=== PATIENT | female | born 1935 | race Two or more races ===

== ENCOUNTER 2022-07-14 21:28 | Inpatient (IN) | payer MEDICARE, OTHER ==
[~2022-07-14] VITALS: Ht 162.6 cm; Wt 45.4 kg
[2022-07-14 21:30] VITALS: BP 130/59
[2022-07-14 22:30] VITALS: BP 130/59
[2022-07-14] MEDS ORDERED: MAG HYDROX/AL HYDROX/SIMETH 30 ML UDC PO PRN (22:30)
[2022-07-14] MEDS ORDERED: MAGNESIUM HYDROXIDE 30 ML UDC PO PRN (22:30)
[2022-07-14] MEDS ORDERED: ONDANSETRON HCL/PF 4 MG/2 ML VIAL IVP PRN (22:30)
[2022-07-14] MEDS ORDERED: CEFTRIAXONE 1 G in IV D5W 50 ML IV SCH (22:30)
[2022-07-14] MEDS ORDERED: Z GUARD REMEDY 4 OZ OINT TP PRN (22:30)
[2022-07-14] MEDS ORDERED: ACETAMINOPHEN 325 MG TABLET PO PRN (22:30)
[2022-07-14] MEDS ORDERED: IV D5/0.45 NACL 1,000 ML IV ONE (22:30)
[2022-07-14] MEDS ORDERED: MORPHINE SULFATE INJ 2 MG/ML DISP.SYRIN IV PRN (22:30)
--- NOTE | 2022-07-14 22:40 | NUR ---
RAIL LOADER OPENING NOTES PATIENT CAME AT 2230 FROM [facility]. PATIENT IS A/O X1. ON ROOM AIR, NO S/S OF RESPIRATORY DISTRESS NOTED. IV ACCESS AT LAC #22 and RFA #24, SALINE LOCK. TELE MONITOR SHOWS A-FIB. SKIN ASSESSMENT DONE AND PERFORMED. PICTURES TAKEN AND PLACED AT PATIENT'S CHART.PATIENT DOESN'T HAVE ANY BELONGING.ADMISSION ORDER RECEIVED. REORIENTATION PATIENT TO THE ROOM AND USE OF CALL LIGHT BUTTON. SAFETY PRECAUTION MAINTAINED WITH BED ON LOWEST AND LOCK POSITION. SIDE RAILS X 2. BED ALARM ON. HOB ELEVATED. WILL CONTINUE TO MONITOR.
--- NOTE | 2022-07-14 22:44 | NUR ---
RN NOTES MD NEEDS TO ORDER UA STAT. PATIENT IS INCONTINENT. MD ORDERED FERGUSON CATHETER. ORDER CARRY ON.
--- NOTE | 2022-07-14 22:47 | NUR ---
RN NOTES TRIED TO CALL THE FAMILY BUT IT WENT THROUGH THE VOICEMAIL BOX. THE NUMBER IS [phone].
--- NOTE | 2022-07-14 23:05 | NUR ---
RN notes Held Manuel munson per Dr. Santos ordered. ordered to give at 0900 am.
--- NOTE | 2022-07-14 23:09 | NUR ---
RN notes Dr. Marquez at the bedside. MD ordered to give Rocephin at 0900 am. Order carried out.
[2022-07-14 23:54] LABS: BASOPHILS % (AUTO) 0.2 % (0.0-2.0); EOSINOPHILS % (AUTO) 0.7 % (0.0-6.0); HEMATOCRIT 37 % (33-45); HEMOGLOBIN 11.2 g/dL (11.5-14.8); LYMPHOCYTES # (AUTO) 1.4 K/uL (0.8-4.8); LYMPHOCYTES % (AUTO) 17.4 % (20.0-44.0); MEAN CORPUSCULAR HGB CONC 31 g/dl (31.0-36.0); MEAN CORPUSCULAR VOLUME 103 fL (82-100); MONOCYTES # (AUTO) 0.4 K/uL (0.1-1.30); MONOCYTES % (AUTO) 5.4 % (2.0-12.0); NEUTROPHILS # (AUTO) 6.3 K/uL (1.8-8.9); NEUTROPHILS % (AUTO) 76.3 % (43.0-81.0); PLATELET COUNT (AUTO) 100 K/uL (150-450); RED BLOOD CELL COUNT(AUTO) 3.57 MIL/uL (4.0-5.2); WHITE BLOOD COUNT (AUTO) 8.2 K/uL (4.3-11.0)
[2022-07-15] VITALS: BP 115/63
[2022-07-15 00:10] LABS: ALANINE AMINOTRANSFERASE 34 U/L (12-78); ALBUMIN 2.4 g/dL (3.4-5.0); ALKALINE PHOSPHATASE 76 U/L (46-116); ASPARTATE AMINOTRANSFERASE 28 U/L (15-37); BILIRUBIN,TOTAL 0.4 mg/dL (0.2-1.0); CALCIUM, SERUM 9.2 mg/dL (8.5-10.1); CARBON DIOXIDE 25 mmol/L (21-32); GLUCOSE 122 mg/dL (74-106); POTASSIUM 3.2 mmol/L (3.5-5.1); TOTAL PROTEIN, SERUM 6.2 g/dL (6.4-8.2); UREA NITROGEN, BLOOD 47 mg/dL (7-18)
[2022-07-15 00:12] LABS: BILIRUBIN,URINE 1+ (NEGATIVE); COLOR,URINE AMBER (YELLOW); LEUKOCYTE ESTERASE ,URINE 3+ (NEGATIVE); NITRITE, URINE NEGATIVE (NEGATIVE); PROTEIN,URINE 2+ mg/dl (NEGATIVE); UGLUCOSE NEGATIVE (NEGATIVE); UROBILINOGEN,URINE 0.2 EU/dL (0.2)
--- NOTE | 2022-07-15 00:15 | NUR ---
RN NOTES OBTAINED THE PATIENT'S INFO FROM INDERJIT DicksonROBERTO) [phone].
[2022-07-15 00:24] LABS: BACTERIA,URINE Few /HPF (None Seen); RBC,URINE TOO NUMEROUS TO COUN /HPF (0-2); SQUAMOUS EPITHELIAL CELL,UR Few /HPF (None Seen)
[2022-07-15 00:27] LABS: SODIUM SERUM 172 mmol/L (136-145)
[2022-07-15 00:28] LABS: CHLORIDE 140 mmol/L (98-107)
--- NOTE | 2022-07-15 00:31 | NUR ---
RN notes Received a critical lab from [facility] for sodium 172. Dr. Verdugo is aware and informed. No new order received. Will continue to monitor.
--- NOTE | 2022-07-15 00:36 | NUR ---
RN notes Called [place] [facility] regarding lovenox.
--- NOTE | 2022-07-15 00:58 | NUR ---
RN notes Informed and notified Dr. Mishra regarding Pt's lactic acid is 2.3. No new orders received per MD. Charge nurse is aware and informed. Will continue to monitor.
[2022-07-15] MEDS: ENOXAPARIN SODIUM 40 MG/0.4 ML DISP.SYRIN SQ SCH ×3 (01:04→20:41)
[2022-07-15] MEDS ORDERED: POTASSIUM CHLORIDE 10 MEQ/50 ML PREMIXED IVPB FOR PERIPHERAL LINE IV ONE (02:30)
--- NOTE | 2022-07-15 02:30 | NUR ---
RN notes Informed and notified Dr. Wharton regarding Pt's potassium was 3.2. MD ordered KCL 40mEq/IV/once. Order carried out.
[2022-07-15] MEDS: POTASSIUM CL. PREMIX PERIPHER. 50 ML IV SCH ×4 (02:43→05:44)
[2022-07-15 02:57] LABS: CARBON DIOXIDE 24 mmol/L (21-32); CREATININE 0.9 mg/dL (0.6-1.3); GLUCOSE 148 mg/dL (74-106); POTASSIUM 3.2 mmol/L (3.5-5.1); UREA NITROGEN, BLOOD 47 mg/dL (7-18)
[2022-07-15 03:00] LABS: SODIUM SERUM 171 mmol/L (136-145)
[2022-07-15 03:01] LABS: ALANINE AMINOTRANSFERASE 30 U/L (12-78); ALBUMIN 2.3 g/dL (3.4-5.0); ALKALINE PHOSPHATASE 72 U/L (46-116); ASPARTATE AMINOTRANSFERASE 26 U/L (15-37); BILIRUBIN,DIRECT 0.2 mg/dL (0.0-0.2); BILIRUBIN,TOTAL 0.4 mg/dL (0.2-1.0); CHLORIDE 140 mmol/L (98-107); TOTAL PROTEIN, SERUM 5.9 g/dL (6.4-8.2)
--- NOTE | 2022-07-15 03:01 | NUR ---
RN notes Receive a phone call from [facility]. Pt's sodium is 171. Pt's sodium was 172. MD is aware and informed.
[2022-07-15 04:00] VITALS: BP 117/73
[2022-07-15 06:37] LABS: BASOPHILS % (AUTO) 0.3 % (0.0-2.0); EOSINOPHILS % (AUTO) 1.3 % (0.0-6.0); HEMATOCRIT 35 % (33-45); HEMOGLOBIN 10.7 g/dL (11.5-14.8); LYMPHOCYTES # (AUTO) 1.8 K/uL (0.8-4.8); MEAN CORPUSCULAR HGB CONC 30 g/dl (31.0-36.0); MEAN CORPUSCULAR VOLUME 106 fL (82-100); MONOCYTES # (AUTO) 0.5 K/uL (0.1-1.30); MONOCYTES % (AUTO) 5.8 % (2.0-12.0); NEUTROPHILS # (AUTO) 6.3 K/uL (1.8-8.9); NEUTROPHILS % (AUTO) 71.6 % (43.0-81.0); PLATELET COUNT (AUTO) 99 K/uL (150-450); RED BLOOD CELL COUNT(AUTO) 3.32 MIL/uL (4.0-5.2); WHITE BLOOD COUNT (AUTO) 8.7 K/uL (4.3-11.0)
--- NOTE | 2022-07-15 06:40 | NUR ---
BROILER CHEF OR COOK CLOSING NOTES PATIENT IS ASLEEP AND RESTING COMFORTABLY IN BED. CAN BE EASITY BE AWAKEN BY CALLING NAME. A/O X 1-2. PATIENT IS ABLE TO FOLLOW DIRECTIONS. NO S/S OF RESPIRATORY DESTRESS NOTED. ON TELE MONITOR, A-FIB AT 72. IV SITE ON RFA #24G RUNNING at D5W 1/2 NS RUNNING AT 70ML/HR AND LAC #22G ON SALINE LOCK.KEPT CLEAN, DRY AND COMFORTABLE. CHANGED DIAPER AND WOUND CARE DONE. SAFETY MEASURES MAINTAINED WITH BED IN LOWEST AND LOCK POSITION. BED ALARM ON. CALL LIGHT AND TABLE WITHIN REACH. SIDE RAILS UP X2. WILL ENDORSE TO THE NEXT SHIFT FOR THE CONTINUITY OF CARE.
--- NOTE | 2022-07-15 07:00 | NUR ---
WELDER TECH OPENING NOTES: RECEIVED PT IN BED ASLEEP, EASILY AWAKE BY STIMULI. ALERT AND ORIENTED X 1. NO SOB OR CARDIAC DISTRESS WITH SENIOR IT ARCHITECT WITH CURRENT READING:A.FIB @74BPM. IV ACCESS ON LFA GAUGE 22, RFA GAUGE 24 PATENT, INTACT AND INFUSING D5 1/2 NS @70ML/HR . SAFETY MEASURES MAINTAINED: BED LOCKED AND IN LOWEST POSITION. SIDE RAILS UP X 2, CALL LIGHT IN EASY REACH AND WILL MONITOR ACCORDINGLY.
[2022-07-15 07:37] LABS: ALANINE AMINOTRANSFERASE 26 U/L (12-78); ALBUMIN 2.3 g/dL (3.4-5.0); ALKALINE PHOSPHATASE 74 U/L (46-116); ASPARTATE AMINOTRANSFERASE 24 U/L (15-37); BILIRUBIN,TOTAL 0.4 mg/dL (0.2-1.0); CALCIUM, SERUM 9.2 mg/dL (8.5-10.1); CARBON DIOXIDE 22 mmol/L (21-32); CREATININE 0.8 mg/dL (0.6-1.3); GLUCOSE 127 mg/dL (74-106); MAGNESIUM 2.9 mg/dL (1.8-2.4); POTASSIUM 4.1 mmol/L (3.5-5.1); UREA NITROGEN, BLOOD 44 mg/dL (7-18)
[2022-07-15 07:57] LABS: CHLORIDE 142 mmol/L (98-107); SODIUM SERUM 170 mmol/L (136-145)
[2022-07-15 08:00] VITALS: BP 124/53
--- NOTE | 2022-07-15 08:00 | NUR ---
RN NOTES: RECEIVED LAB RESULTS: NA 170,CL 142. LAB ([facility])
[2022-07-15] MEDS ORDERED: TRAZ-257 PO (09:46)
[2022-07-15] MEDS ORDERED: ASCO-352 PO (09:46)
[2022-07-15] MEDS ORDERED: CHOL100043 PO (09:46)
[2022-07-15] MEDS ORDERED: ZINC50TA65 PO (09:46)
[2022-07-15] MEDS ORDERED: QUET25TA PO (09:46)
[2022-07-15] MEDS ORDERED: ATOR10TA PO (09:46)
[2022-07-15] MEDS ORDERED: DONE10TA44 PO (09:46)
[2022-07-15] MEDS ORDERED: MEMA10TA56 PO (09:46)
[2022-07-15] MEDS ORDERED: AMLO-212 PO (09:46)
[2022-07-15] MEDS ORDERED: ENAL-78 PO (09:46)
[2022-07-15 11:04] LABS: ALBUMIN 2.4 g/dL (3.4-5.0); BILIRUBIN,TOTAL 0.4 mg/dL (0.2-1.0); CALCIUM, SERUM 9.2 mg/dL (8.5-10.1); CREATININE 0.8 mg/dL (0.6-1.3); TOTAL PROTEIN, SERUM 6.1 g/dL (6.4-8.2)
[2022-07-15 11:10] LABS: POTASSIUM 3.9 mmol/L (3.5-5.1)
--- NOTE | 2022-07-15 11:10 | NUR ---
RN NOTES: [facility] RESULTS: NA 169, CL 139. REPORTED BY JORDAN
[2022-07-15 11:16] LABS: EOSINOPHILS % (MANUAL) 2 % (0-4); LYMPHOCYTES % (MANUAL) 23 % (16-48); MONOCYTES % (MANUAL) 7 % (0-11.0); NEUTROPHILS % (MANUAL) 68 (42-76)
[2022-07-15] MEDS: IV D5W 1,000 ML IV PRN (11:34)
[2022-07-15 12:00] VITALS: BP 115/82
[2022-07-15] MEDS ORDERED: NEUTRA PHOS 1 POWD.PACKET NG ONE (12:30)
--- NOTE | 2022-07-15 12:56 | NUR ---
RN NOTES: DAUGHTER INSISTED TO FEED HER MOTHER (PT).PT HAD EPISODES OF COUGHING BECAUSE DAUGHTER STATED PT IS HUNGRY SO SHE FEED HER FAST. ASSESSED PT AND ELEVATED THE BED,
--- NOTE | 2022-07-15 13:18 | NUR ---
RN NOTES: PT HAS + CRACKLES UPON AUSCULTATION, INFORMED DR MARQUEZ IF WE CAN GET STAT CHEST XRAY. OKAYED. ORDERS NOTED AND CARRIED OUT.
[2022-07-15] MEDS: CEFTRIAXONE 1 G in IV D5W 50 ML IV SCH (14:58)
[2022-07-15 15:32] LABS: ALBUMIN 2.4 g/dL (3.4-5.0); BILIRUBIN,TOTAL 0.3 mg/dL (0.2-1.0); CALCIUM, SERUM 9.1 mg/dL (8.5-10.1); CREATININE 0.9 mg/dL (0.6-1.3); POTASSIUM 3.8 mmol/L (3.5-5.1)
[2022-07-15 16:00] VITALS: BP 129/73
--- NOTE | 2022-07-15 16:11 | NUR ---
RN NOTES: RECEIVED REPORT FROM [facility]: NA 166, CL 136.
--- NOTE | 2022-07-15 18:46 | NUR ---
FIBER GLASS WORKER CLOSING NOTES PATIENT IS ASLEEP AND RESTING COMFORTABLY IN BED, IN ROOM AIR. CYMRAES SPEAKING, RESPONSIVE AND FOLLOWS VERBAL COMMAND.. A/O X 1-2. NO S/S OF RESPIRATORY DESTRESS NOTED. ON TELE MONITOR, A-FIB CONTROLLED AV 6. IV SITE ON RFA #24G, LFA #22g RUNNING at D5W AT 100ML/HR. KEPT CLEAN, DRY AND COMFORTABLE. 1X BM CHANGED DIAPER AND WOUND CARE DONE. SAFETY MEASURES MAINTAINED WITH BED IN LOWEST AND LOCK POSITION. BED ALARM ON. CALL LIGHT AND TABLE WITHIN REACH. SIDE RAILS UP X2. WILL ENDORSE TO THE NEXT SHIFT FOR THE CONTINUITY OF CARE.
[2022-07-15 19:18] LABS: ALBUMIN 2.3 g/dL (3.4-5.0); BILIRUBIN,TOTAL 0.3 mg/dL (0.2-1.0); CALCIUM, SERUM 9.1 mg/dL (8.5-10.1); CREATININE 0.9 mg/dL (0.6-1.3); POTASSIUM 3.7 mmol/L (3.5-5.1); TOTAL PROTEIN, SERUM 6.1 g/dL (6.4-8.2)
--- NOTE | 2022-07-15 19:30 | NUR ---
CUSTOMER CARE VOICE CONSULTANT OPENING NOTES RECEIVED PT SLEEPING IN BED, EASILY AROUSED. IN ROOM AIR WITH NO S/S OF RESPIRATORY DISTRESS. ARABIC SPEAKING, RESPONSIVE AND FOLLOWS VERBAL COMMAND. A/O X 1-2. ON TELE MONITOR, A-FIB CONTROLLED AV 76. IV SITE ON LFA #22G SL, RFA #24 RUNNING D5W AT 100ML/HR, BOTH PATENT AND INTACT. WOUND DRESSING INTACT. FERGUSON CATHETER DRAINING BLOODY URINE NOTED. SAFETY MEASURES IN PLACE: BED LOCKED AND IN LOWEST POSITION, BED ALARM ON, SIDE RAILS UP X3, CALL LIGHT AND TABLE WITHIN REACH. WILL CONTINUE TO MONITOR AND ASSIST.
[2022-07-15 20:00] VITALS: BP 142/58
--- NOTE | 2022-07-15 20:41 | NUR ---
RN NOTES FERGUSON CATHETER NOTED WITH RED/PINK URINE IN BAG. CLEAR URINE NOTED AT START OF TUBING. LOVENOX GIVEN DUE TO ABSENCE OF PRESENT BLEEDING. WILL CONTINUE TO MONITOR.
[2022-07-15] MEDS: THERAHONEY GEL 1.5 OZ TUBE TP SCH (21:00)
[2022-07-15 22:45] LABS: ALANINE AMINOTRANSFERASE 33 U/L (12-78); ALKALINE PHOSPHATASE 68 U/L (46-116); ASPARTATE AMINOTRANSFERASE 41 U/L (15-37); BILIRUBIN,TOTAL 0.2 mg/dL (0.2-1.0); CALCIUM, SERUM 8.6 mg/dL (8.5-10.1); CARBON DIOXIDE 23 mmol/L (21-32); CREATININE 0.9 mg/dL (0.6-1.3); GLUCOSE 123 mg/dL (74-106); POTASSIUM 3.5 mmol/L (3.5-5.1); TOTAL PROTEIN, SERUM 5.2 g/dL (6.4-8.2); UREA NITROGEN, BLOOD 37 mg/dL (7-18)
[2022-07-15 22:48] LABS: CHLORIDE 132 mmol/L (98-107); SODIUM SERUM 162 mmol/L (136-145)
--- NOTE | 2022-07-15 22:51 | NUR ---
RN NOTES CRITICAL LAB REPORT FROM LAB ([facility]): SODIUM 162, CHLORIDE 132.
[2022-07-16] VITALS: BP 134/59
[2022-07-16] MEDS: IV D5W 1,000 ML IV PRN ×2 (00:22→11:28)
[2022-07-16 02:58] LABS: ALANINE AMINOTRANSFERASE 44 U/L (12-78); ALBUMIN 2.1 g/dL (3.4-5.0); ALKALINE PHOSPHATASE 74 U/L (46-116); ASPARTATE AMINOTRANSFERASE 52 U/L (15-37); BILIRUBIN,TOTAL 0.3 mg/dL (0.2-1.0); CALCIUM, SERUM 8.6 mg/dL (8.5-10.1); CARBON DIOXIDE 25 mmol/L (21-32); CREATININE 0.8 mg/dL (0.6-1.3); GLUCOSE 112 mg/dL (74-106); POTASSIUM 3.4 mmol/L (3.5-5.1); TOTAL PROTEIN, SERUM 5.6 g/dL (6.4-8.2); UREA NITROGEN, BLOOD 33 mg/dL (7-18)
--- NOTE | 2022-07-16 03:34 | NUR ---
RN NOTES CRITICAL LAB REPORT FROM LAB ([facility]): SODIUM 159, CHLORIDE 129.
[2022-07-16 03:35] LABS: CHLORIDE 129 mmol/L (98-107); SODIUM SERUM 159 mmol/L (136-145)
[2022-07-16 07:29] LABS: ALBUMIN 2.2 g/dL (3.4-5.0); BILIRUBIN,TOTAL 0.3 mg/dL (0.2-1.0); CALCIUM, SERUM 8.8 mg/dL (8.5-10.1); CREATININE 0.7 mg/dL (0.6-1.3); TOTAL PROTEIN, SERUM 5.8 g/dL (6.4-8.2)
--- NOTE | 2022-07-16 07:30 | NUR ---
BODY SANDER CLOSING NOTES PT RESTING IN BED AT THIS TIME, EASILY AROUSED. STABLE IN RA WITH NO S/S OF RESPIRATORY DISTRESS. ITALIAN SPEAKING, RESPONSIVE AND FOLLOWS VERBAL COMMAND. A/O X 1-2. ON TELE MONITOR, A-FIB CONTROLLED 82. IV SITE ON LFA #22G NOT PATENT AFTER FLUSHING AND RFA #24 RUNNING D5W AT 100ML/HR LEAKING TOWARDS END OF SHIFT. ENDORSED TO DAY SHIFT NURSE. WOUND DRESSING INTACT AND NEW WOUND CARE ORDERED ENDORSED. FERGUSON CATHETER DRAINING PINK URINE NOTED WITH 450 ML OUTPUT THROUGHOUT SHIFT. SAFETY MEASURES MAINTAINED: BED LOCKED AND IN LOWEST POSITION, BED ALARM ON, SIDE RAILS UP X3, CALL LIGHT AND TABLE WITHIN REACH. WILL ENDORSE FELICITAS TO DAY SHIFT NURSE.
--- NOTE | 2022-07-16 07:50 | NUR ---
JOINT SUPERVISOR OPENING NOTES PT RESTING IN BED AT THIS TIME, EASILY AROUSED. STABLE IN RA WITH NO S/S OF RESPIRATORY DISTRESS. OCCITAN SPEAKING, RESPONSIVE AND FOLLOWS VERBAL COMMAND. A/O X 1-2. ON TELE MONITOR, A-FIB CONTROLLED HR ON 80'S. INSERTED A NEW IV LINE AT RIGHT HAND G. 24. FERGUSON CATHETER DRAINING PINK URINE NOTED. ABNORMAL VALUES RELAYED TO HOSPITALIST. AWAITS FURTHER ORDER. SAFETY MEASURES MAINTAINED: BED LOCKED AND IN LOWEST POSITION, BED ALARM ON, SIDE RAILS UP X3, CALL LIGHT AND TABLE WITHIN REACH. WILL CONTINUE TO MONITOR.
[2022-07-16 08:00] VITALS: BP 141/66
--- NOTE | 2022-07-16 08:27 | NUR ---
WOUND CARE CONSULT: PT PRESENTS WITH SACRAL UNSTAGEABLE PRESSURE ULCER WITH PROXIMAL DEEP TISSUE INJURY WELL DEEP TISSUE INJURIES/DISCOLORATIONS TO FEET/HEELS, PRESENT ON ADMISSION. DR ARTHUR ON CASE FOR SURGICAL CONSULT. DR GRACIA CALLED FOR DPM CONSULT. DISCUSSED SKIN PROTECTION WITH NURSING STAFF. PT IS INCONTINENT OF STOOL. MARTY DALY NOTED. IN AGREEMENT WITH PLAN OF CARE. PT IS ON ENGLEWOOD ISOFLEX LOW AIRLOSS BED. Addendum: 07/16/22 at 0831 by CHON CASTRO WNDNU Amended: Links added.
[2022-07-16] MEDS: ENOXAPARIN SODIUM 40 MG/0.4 ML DISP.SYRIN SQ SCH ×2 (09:00→20:07)
[2022-07-16] MEDS: THERAHONEY GEL 1.5 OZ TUBE TP SCH (09:18)
--- NOTE | 2022-07-16 10:00 | NUR ---
PATIENT O2 SAT AT 88% PLACED ON OXYGEN AT 2LPM. O2SAT INCREASE IN 5 MINS. HOB ELEVATED. WILL CONTINUE TO MONITOR.
[2022-07-16 11:30] LABS: BASOPHILS % (AUTO) 0.2 % (0.0-2.0); EOSINOPHILS % (AUTO) 2.6 % (0.0-6.0); HEMATOCRIT 37 % (33-45); HEMOGLOBIN 10.8 g/dL (11.5-14.8); LYMPHOCYTES # (AUTO) 1.7 K/uL (0.8-4.8); LYMPHOCYTES % (AUTO) 18.1 % (20.0-44.0); MEAN CORPUSCULAR HGB CONC 29 g/dl (31.0-36.0); MEAN CORPUSCULAR VOLUME 111 fL (82-100); MONOCYTES # (AUTO) 0.4 K/uL (0.1-1.30); MONOCYTES % (AUTO) 4.7 % (2.0-12.0); NEUTROPHILS # (AUTO) 6.8 K/uL (1.8-8.9); NEUTROPHILS % (AUTO) 74.4 % (43.0-81.0); PLATELET COUNT (AUTO) 85 K/uL (150-450); RED BLOOD CELL COUNT(AUTO) 3.38 MIL/uL (4.0-5.2); WHITE BLOOD COUNT (AUTO) 9.2 K/uL (4.3-11.0)
[2022-07-16 11:34] LABS: ALBUMIN 2.1 g/dL (3.4-5.0); BILIRUBIN,TOTAL 0.3 mg/dL (0.2-1.0); CALCIUM, SERUM 8.9 mg/dL (8.5-10.1); CREATININE 0.8 mg/dL (0.6-1.3); POTASSIUM 3.5 mmol/L (3.5-5.1); TOTAL PROTEIN, SERUM 5.5 g/dL (6.4-8.2)
[2022-07-16 12:00] VITALS: BP 107/50
--- NOTE | 2022-07-16 13:31 | NUR ---
SS consult requested for pt. from home with wounds. SW will follow up at a later time.
[2022-07-16 14:24] LABS: BASOPHILS % (MANUAL) 0 % (0.0-2.0); EOSINOPHILS % (MANUAL) 3 % (0-4); LYMPHOCYTES % (MANUAL) 20 % (16-48); MONOCYTES % (MANUAL) 6 % (0-11.0); NEUTROPHILS % (MANUAL) 71 (42-76)
[2022-07-16] MEDS: CEFTRIAXONE 1 G in IV D5W 50 ML IV SCH (15:14)
[2022-07-16 15:44] LABS: CALCIUM, SERUM 8.7 mg/dL (8.5-10.1); CREATININE 0.7 mg/dL (0.6-1.3); POTASSIUM 3.4 mmol/L (3.5-5.1)
[2022-07-16 15:55] LABS: BILIRUBIN,TOTAL 0.3 mg/dL (0.2-1.0); TOTAL PROTEIN, SERUM 5.4 g/dL (6.4-8.2)
[2022-07-16 16:00] VITALS: BP 111/51
[2022-07-16] MEDS: ENSURE ENLIVE 237 ML LIQUID (VANILLA) PO SCH (17:00)
--- NOTE | 2022-07-16 18:17 | NUR ---
ICE CREAM SHOP ASSOCIATE CLOSING NOTES PT RESTING IN BED WITH THE DAUGHTER BESIDE HER. ON OXYGEN AT 2LPM TOLERATING WELL. NO S/S OF RESPIRATORY DISTRESS. SOUTH AFRICAN SPEAKING, RESPONSIVE AND FOLLOWS VERBAL COMMAND. A/O X 1-2. ON TELE MONITOR, A-FIB CONTROLLED HR 77. FERGUSON CATHETER DRAINING PINK URINE NOTED. ALL MEDS GIVEN. KEPT COMFORTABLE. SAFETY MEASURES MAINTAINED: BED LOCKED AND IN LOWEST POSITION, BED ALARM ON, SIDE RAILS UP X3, CALL LIGHT AND TABLE WITHIN REACH. ENDORSED TO NIGHT NURSE.
[2022-07-16] MEDS: POTASSIUM CL. PREMIX PERIPHER. 50 ML IV SCH ×4 (18:53→22:07)
[2022-07-16] MEDS ORDERED: POTASSIUM CHLORIDE 10 MEQ/50 ML PREMIXED IVPB FOR PERIPHERAL LINE IV ONE (19:00)
[2022-07-16 19:17] LABS: ALBUMIN 2.1 g/dL (3.4-5.0); BILIRUBIN,TOTAL 0.3 mg/dL (0.2-1.0); CALCIUM, SERUM 8.5 mg/dL (8.5-10.1); CREATININE 0.7 mg/dL (0.6-1.3); POTASSIUM 3.5 mmol/L (3.5-5.1); TOTAL PROTEIN, SERUM 5.4 g/dL (6.4-8.2)
--- NOTE | 2022-07-16 19:32 | NUR ---
CHRISTMAS TREE FARM MANAGER OPENING NOTES; RECEIVED PT RESTING IN BED AOX1-2 CONFUSED ZAMBIAN SPEAKING DAUGHTER AT BESIDE HER. ON OXYGEN AT 2LPM TOLERATING WELL SATTING 97.4%,NO SIGN SOB/DISTRESS NOTED,NO SIGN FOR PAIN/DISCOMFORT AT THIS TIME,FERGUSON CATHETER DRAINING PINK URINE NOTED.SAFETY MEASURES MAINTAINED: BED LOCKED AND IN LOWEST POSITION, BED ALARM ON, SIDE RAILS UP X3, CALL LIGHT AND TABLE WITHIN REACH.WILL CONTINUE TO MONITOR.
[2022-07-16 20:00] VITALS: BP 111/42
[2022-07-16 23:33] LABS: POTASSIUM 4.8 mmol/L (3.5-5.1)
[2022-07-17] VITALS: BP 143/59
[2022-07-17 00:45] LABS: BILIRUBIN,TOTAL 0.3 mg/dL (0.2-1.0); CREATININE 0.7 mg/dL (0.6-1.3); TOTAL PROTEIN, SERUM 5.3 g/dL (6.4-8.2)
[2022-07-17 04:00] VITALS: BP 126/45
[2022-07-17] MEDS: IV D5W 1,000 ML IV PRN ×2 (04:22→15:10)
[2022-07-17 04:34] LABS: ALANINE AMINOTRANSFERASE 31 U/L (12-78); ALKALINE PHOSPHATASE 75 U/L (46-116); ASPARTATE AMINOTRANSFERASE 25 U/L (15-37); BILIRUBIN,TOTAL 0.4 mg/dL (0.2-1.0); CALCIUM, SERUM 8.6 mg/dL (8.5-10.1); CARBON DIOXIDE 24 mmol/L (21-32); CHLORIDE 122 mmol/L (98-107); CREATININE 0.6 mg/dL (0.6-1.3); GLUCOSE 132 mg/dL (74-106); POTASSIUM 3.8 mmol/L (3.5-5.1); SODIUM SERUM 151 mmol/L (136-145); TOTAL PROTEIN, SERUM 5.4 g/dL (6.4-8.2); UREA NITROGEN, BLOOD 21 mg/dL (7-18)
--- NOTE | 2022-07-17 06:30 | NUR ---
TOUCHER UP CLOSING NOTES; PATIENT IN BED SLEEPING BUT EASY TO AROUSED,AOX1-2 CONFUSED BULGARIAN SPEAKING,ON OXYGEN AT 2LPM TOLERATING WELL SATTING 98%,NO SIGN SOB/DISTRESS NOTED,NO SIGN FOR PAIN/DISCOMFORT DURING SHIFT,IV ACCESS ON RFA 22G WITH D5W 100ML/HR,FERGUSON CATHETER DRAINING KERRY URINE NO ODOR NOTED.DUE MEDS GIVEN ORDER,ALL NEEDS ATTENDED,SAFETY MEASURES MAINTAINED: BED LOCKED AND IN LOWEST POSITION, BED ALARM ON, SIDE RAILS UP X3, CALL LIGHT AND TABLE WITHIN REACH.WILL ENDORSED TO NEXT SHIFT.
--- NOTE | 2022-07-17 07:08 | NUR ---
ms rn received on bed, awake,oriented x1 only, lopez to gravity bag, draining well. denies pain at this time, came in w/ uti, aspirations precaution noted. repisitioned for comfort,all needs attended.
[2022-07-17 07:30] LABS: CALCIUM, SERUM 8.5 mg/dL (8.5-10.1); CARBON DIOXIDE 20 mmol/L (21-32); CHLORIDE 123 mmol/L (98-107); CREATININE 0.5 mg/dL (0.6-1.3); GLUCOSE 101 mg/dL (74-106); POTASSIUM 4.1 mmol/L (3.5-5.1); SODIUM SERUM 149 mmol/L (136-145); UREA NITROGEN, BLOOD 21 mg/dL (7-18)
[2022-07-17 07:37] LABS: ALANINE AMINOTRANSFERASE 34 U/L (12-78); ALBUMIN 1.8 g/dL (3.4-5.0); ALKALINE PHOSPHATASE 71 U/L (46-116); ASPARTATE AMINOTRANSFERASE 29 U/L (15-37); BILIRUBIN,TOTAL 0.4 mg/dL (0.2-1.0); TOTAL PROTEIN, SERUM 5.5 g/dL (6.4-8.2)
[2022-07-17 08:00] VITALS: BP 148/65
[2022-07-17] MEDS: THERAHONEY GEL 1.5 OZ TUBE TP SCH (09:30)
[2022-07-17] MEDS: ENOXAPARIN SODIUM 40 MG/0.4 ML DISP.SYRIN SQ SCH ×2 (09:38→20:34)
[2022-07-17] MEDS: ENSURE ENLIVE 237 ML LIQUID (VANILLA) PO SCH ×3 (09:41→18:41)
[2022-07-17 11:09] LABS: CALCIUM, SERUM 8.7 mg/dL (8.5-10.1); CREATININE 0.6 mg/dL (0.6-1.3); POTASSIUM 3.8 mmol/L (3.5-5.1)
[2022-07-17 11:22] LABS: BILIRUBIN,TOTAL 0.4 mg/dL (0.2-1.0); TOTAL PROTEIN, SERUM 5.3 g/dL (6.4-8.2)
--- NOTE | 2022-07-17 12:50 | NUR ---
ms rn daughter called, was updated w/ mom;s conditiom.will monitor patient.
[2022-07-17] MEDS: CEFTRIAXONE 1 G in IV D5W 50 ML IV SCH (15:10)
--- NOTE | 2022-07-17 17:00 | NUR ---
SS consult: SS Consult requested for home with pressure wounds. The pt. is 86-year-old female admitted to [facility] for Hypernatremia, UTI. FRANCISCO JAVIER met with pt. at bedside. The pt.s daughter, Amberly Ramirez [phone] was at bedside. The pt. is alert & oriented x 2 and makes good eye contact. The pt. appears well-groomed. The pt. has euthymic mood & affect. Pt. denies SI/HI and denies hallucinations. Pt. has Vascular Dementia diagnosed in 04/2018 per daughter. The pt. is a poor historian and daughter provided collateral information. Per daughter, pt. resides at home [[address] [facility] [address]] with other daughter, Betsy Salazar [phone]. SW provided family with senior resources including for transportation, meal delivery, DME, insurance assistance etc. SW called daughter pt. lives with to gather other details, Betsy Salazar [phone].Per Marely, pt. takes some psych meds to manage Dementia symptoms: Quetiapine. Amlodipine, Trazadone. FRANCISCO JAVIER discussed with pt.s nurse, Rose to ensure pt. is receiving these meds. Per Marely, pt. is bed bound and has [address] [facility] with 197 hours/month and also receives home health services with [facility] [phone] for wound care. Daughter states pt. gets turns every 2 hours by caregivers and herself at night. Daughter says she knows because she has cameras and can see that caregivers charge her, turn her and sit her up and take pt. outside at times. Daughter states, they are tending to the pressure wounds, she buys patches that cover the wounds from moisture and nurse applies treatment. No suspicion of neglect by family or caregivers or home health. Per daughter, Pt. receives SSI. DC Plan: Per family, thy would like pt. to return home [[address] [place] [address]] with other daughter, Betsy Salazar [phone], caregivers and when ready for discharge. CM will work on transportation. ABUSE PREVENTION: ELDER ABUSE HOTLINE (18/01) ADULT PROTECTIVE SERVICES HOTLINE LONG-TERM CARE DEAN [facility] AREA ON AGING (HOTLINE) ADULT DAY HEALTH CARE CARE CENTERS: Private pay or Medi-irma funded adult day care [place] [facility] , [facility] , [facility] Adult Care Center , [facility] Adult Day Health Care , [facility] Adult Day Health Care , [facility] Adult [facility]care Center , [facility] , [facility] , [place] ALZHEIMERS DISEASE/DEMENTIA: Alzheimers Association Helpline [facility] www.alz.org/[facility] Department of Aging www.lacity.org Family Caregiver Welsh www.caregiver.org [place] Caregiver Resources Center/Family Support www.[facility].org CANCER RESOURCES: [place] Cancer Society www.cancer.org Cancer Support Community www.CancerSupportVvsb.org: CancerCare www.cancercare.org [facility] Cancer Support Center www.[facility].org COMMUNITY HEALTH ASSOCIATIONS: AARP www.aarp.org ALS Association (ask for Jeanne) www.als.org [place] Diabetes Association www.diabetes.org [place] Heart Association www.heart.org [place] Lung Association www.lungusa.org [place] Parkinson Disease Association www.apdaparkinson.org B[place]wanan Coahoma , www.redcross.org Arthritis Foundation www.arthritis.org Crohns & Colitis Foundation of [place] www.ccfa.org/chapters/syed National Multiple Sclerosis Society www.nationalmssociety.org Myasthenia Gravis Foundation www.myasthenia-ca.org National Stroke Association www.stroke.org CONSERVATORSHIP & GUARDIANSHIP: AARP Bet Tzedek Legal Services Center for Health Care Rights Eldercare Information and Referral Net Web Developer [facility]: [facility] Referral Service [facility] Legal Services Office of the Public Guardian [place] EYESIGHT DISORDER RESOURCES: [place] Macular Degeneration Foundation [facility] www.[facility].org GRIEF AND BEREAVEMENT RESOURCES: The [place]athering [place] , [facility] THE JEDDO Connection , [facility] Bereavement Center , [place] HEARING DISORDER RESOURCES: [place] Telephone Access Program Deaf and Disabled Telecommunications Program www.ddtp.cpuc.ca.gov HearRx Hearing Centers ([place]) Better Hearing Systems , [place] GLAD ([facility] Agency on Deafness) V/ TTY; Museum Attendant , [facility] Hearing [facility] -low income hearing aid assistance www.Aden & Anaishearingfoundation.org [place] [facility] HELP AT HOME CAREGIVER SUPPORT: In Home Support Services (Must have Medi-Irma to be eligible) *Ask for a list of agencies that provide services to assist with care in the home. Local Senior Centers also have listings of care providers. HOME SAFETY MODIFICATIONS AND EQUIPMENT: Senior centers have additional referrals. [place] [facility] and Digitour Media Investment Dept. Handyworker Program (low income) or Visit http://hcidla.[facility].org/rsr-fbrlnk-mt for more information National Seating and Mobility and/or ; Forever Active www.foreverAccuvantmed.S*Bio Stay Home Safe www.Stayhomesafe.S*Bio LIFE ALERT RESPONSE SYSTEM: Arran Aromaticsline Services 304-704-0903 www. KeepRecipes Life Alert [phone] www.lifeSilverside Detectors Inc.rtESCAPESwithYOU Life Station 508-090-7592 www.ChinaNet Online Holdingsation.S*Bio Safe Return 809-524-6486 www.alz.or/safereturn Cell Phones for Seniors www.Adama Materials MEALS AND FOOD PROGRAMS: [place] Meals on Wheels [phone] [place] Meals on Wheels [phone] [facility] [phone] [place] to the Homebound [phone] [place] to the Homebound [phone] [facility] to the Homebound [phone] [facility] to the Homebound [phone] Tyrese Lloyd [phone] Britta [facility] [place] [phone] ONE Generation [phone] [facility] [phone] [facility] [phone] Meals on Wheels [phone] For all ages: $6.85/ meal w side. Delivered M-F from 10 am-1pm. Application and payment is done over the phone. Frozen meals available for weekends. Emergency Food [facility] [phone] Pentecostal Trim Installer [phone] [facility] [phone] Connie Myles Outreach- Brown bag lunches [phone] [facility] [phone] MEAL/GROCERY DELIVERY PROGRAMS: [facility] Gourmet Meals [phone]- [facility] [phone]- [facility] Magic Kitchen [phone] Moms Meals [phone] (ask Esqueda for Discount Select grocery stores may provide delivery. MEDICAL INSURANCE SUPPORT SERVICES: Center for Health Care Rights [phone] Health Insurance Counseling/Advocacy Programs (HICAP)-Must have Medicare. Offers counseling for Medi-Irma eligibility [phone] [facility] of Public Trim Installer [phone] www.[facility].ca.gov Medicare 588-633-2775 www.socialsecurity.org Social Security [phone] SENIOR ACTIVITY PROGRAMS: *Contact a local senior center, adult school, recreation facility or community college for education, fitness, recreation, and social programs. Aquatic Therapy and Adapted Exercise programs through [facility] [phone] Encore at [facility] [phone] www.[facility]/encore H2U- Senior Friends [phone] [place] Senior Programs [phone] www.oasisnet.org Suddenly 65 www.dpgfbera73.com SENIOR CENTERS: [facility] Center [phone] [facility] [phone] [facility] Emergency Department [phone] [facility] [phone] [facility] [phone] [facility] [phone] [facility] [phone] [facility] [phone] One Generation, [facility] [phone] [facility] [phone] [facility] [phone] [facility] [phone] [facility] [phone] TRANSPORTATION: Local [facility] may have applications for transportation programs and additional resources. ACCESS Services [phone] Transportation for seniors and disabled persons 7 days a week requiring 254 hr. advance reservation. Must apply and register for program amadou eligible. Advanced Image Enhancement [phone] or [phone] Transportation for seniors and persons with ADA card/metro disabled card in the [facility]. M-F only. Must register for services. ONE GENERATION [phone] Serves 65 years + in conjunction with Super Derivatives program. Must be registered with both programs. A to B Transport [phone] Provides wheelchair/gurney van service. Adult Medical Transport [phone] Accepts [facility] with prior authorization. Care Van [phone] Provides wheelchair Transport. [facility] Wide Transportation [phone] Provides gurney service [facility]le [facility] [phone] Gurney Transport. [facility] Town Transportation [phone] wheelchair & gurney transport [facility] Transportation [phone] wheelchair & gurney transport [place] Non-Emergency Transport [phone] wheelchair & gurney transport [facility] Living [place] [phone] Short Term Transportation primarily for adults with disabilities on social security income. Nominal fee may apply and a reservation is required. [facility] Cab [phone] or [phone] Flynn [phone] [place] [address] Referral Services -[phone] For additional programs & services VETERANS RESOURCES: Submissions for Aid and Attendance should be done directly to Federal VA office locatd at : [address] [facility] [address] X110 National Caregiver Support Line [phone] [facility] Veterans Services Field Office [phone] [place] Department of [place] Affairs [phone] Pension Information [phone]
[2022-07-17 17:57] LABS: ALBUMIN 2.1 g/dL (3.4-5.0); BILIRUBIN,TOTAL 0.6 mg/dL (0.2-1.0); CALCIUM, SERUM 8.6 mg/dL (8.5-10.1); CREATININE 0.6 mg/dL (0.6-1.3); POTASSIUM 3.7 mmol/L (3.5-5.1)
--- NOTE | 2022-07-17 18:58 | NUR ---
ms rn on bed, family at bedside, updated w/ plan of care.
--- NOTE | 2022-07-17 19:30 | NUR ---
SAMPLING EXPERT OPENING NOTES Received patient in bed awake. A/O x 1. Patient on O2 @2-3L, nasal cannula. IV access on RFA #22G D5W running 100ml/hr, infusing well. Edouard catheter in place. Safety measures maintained with bed in lowest position and locked. Side rails up x2. Call light within reach. Will continue with the plan of care.
[2022-07-17 20:00] VITALS: BP 108/47
[2022-07-17 22:48] LABS: CALCIUM, SERUM 8.7 mg/dL (8.5-10.1); CARBON DIOXIDE 24 mmol/L (21-32); CHLORIDE 118 mmol/L (98-107); CREATININE 0.6 mg/dL (0.6-1.3); GLUCOSE 124 mg/dL (74-106); POTASSIUM 3.5 mmol/L (3.5-5.1); SODIUM SERUM 146 mmol/L (136-145); UREA NITROGEN, BLOOD 16 mg/dL (7-18)
[2022-07-17 22:54] LABS: ALANINE AMINOTRANSFERASE 29 U/L (12-78); ALBUMIN 1.9 g/dL (3.4-5.0); ALKALINE PHOSPHATASE 83 U/L (46-116); ASPARTATE AMINOTRANSFERASE 25 U/L (15-37); BILIRUBIN,TOTAL 0.3 mg/dL (0.2-1.0); TOTAL PROTEIN, SERUM 5.3 g/dL (6.4-8.2)
[2022-07-18] VITALS: BP_SYST 122; BP_SYST 134; BP_DIAS 57; BP_DIAS 80
[2022-07-18 02:49] LABS: ALANINE AMINOTRANSFERASE 39 U/L (12-78); ALBUMIN 2.1 g/dL (3.4-5.0); ALKALINE PHOSPHATASE 93 U/L (46-116); ASPARTATE AMINOTRANSFERASE 35 U/L (15-37); BILIRUBIN,TOTAL 0.3 mg/dL (0.2-1.0); CALCIUM, SERUM 8.9 mg/dL (8.5-10.1); CARBON DIOXIDE 25 mmol/L (21-32); CHLORIDE 117 mmol/L (98-107); CREATININE 0.7 mg/dL (0.6-1.3); GLUCOSE 124 mg/dL (74-106); POTASSIUM 3.4 mmol/L (3.5-5.1); SODIUM SERUM 146 mmol/L (136-145); TOTAL PROTEIN, SERUM 5.8 g/dL (6.4-8.2); UREA NITROGEN, BLOOD 15 mg/dL (7-18)
[2022-07-18 04:00] VITALS: BP_SYST 122; BP_SYST 129; BP_DIAS 62
--- NOTE | 2022-07-18 05:10 | NUR ---
RN NOTES Kept clean and dry. Dressing and diaper change. Applied therahoney on the sacral area.
--- NOTE | 2022-07-18 06:30 | NUR ---
STEEL MOLDER CLOSING NOTES Patient is in bed sleeping comfortably. Can easily be awaken by touch and calling name. A/O x 1. Patient on O2 @2-3L, nasal cannula. Edouard catheter in place. Safety measures maintained with bed in lowest position and locked. Side rails up x2. Call light within reach. Will endorse to the next shift for the continuity of care.
--- NOTE | 2022-07-18 07:25 | NUR ---
RETAIL EVENT COORDINATOR CLOSING NOTES Patient is in bed sleeping comfortably. Can easily be awaken by touch and calling name. A/O x 1-, polish speaking. Patient on O2 @2-3L, nasal cannula, no signs of sob or shortness of breath. On tele monitor, currently Afib, with hr 72bpm. Pt vocalized shes not having any chest discomfort at this time. Edouard catheter in place. Safety measures maintained with bed in lowest position and locked. Side rails up x2. Call light within reach. Will continue to monitor
--- NOTE | 2022-07-18 07:35 | NUR ---
RELAY REPAIRER OPENING NOTES Patient is in bed sleeping comfortably. Can easily be awaken by touch and calling name. A/O x 1-, upper sorbian speaking. Patient on O2 @2-3L, nasal cannula, no signs of sob or shortness of breath. On tele monitor, currently Afib, with hr 72bpm. Pt vocalized shes not having any chest discomfort at this time. Edouard catheter in place. Safety measures maintained with bed in lowest position and locked. Side rails up x2. Call light within reach. Will continue to monitor
[2022-07-18 07:52] LABS: BILIRUBIN,TOTAL 0.2 mg/dL (0.2-1.0); CALCIUM, SERUM 8.6 mg/dL (8.5-10.1); CREATININE 0.6 mg/dL (0.6-1.3); POTASSIUM 3.5 mmol/L (3.5-5.1); TOTAL PROTEIN, SERUM 5.4 g/dL (6.4-8.2)
[2022-07-18 08:00] VITALS: BP 126/64
[2022-07-18] MEDS: ENSURE ENLIVE 237 ML LIQUID (VANILLA) PO SCH ×3 (08:28→16:15)
[2022-07-18] MEDS: ENOXAPARIN SODIUM 40 MG/0.4 ML DISP.SYRIN SQ SCH ×2 (08:36→21:05)
[2022-07-18 10:50] LABS: CALCIUM, SERUM 8.9 mg/dL (8.5-10.1); CREATININE 0.6 mg/dL (0.6-1.3); POTASSIUM 3.3 mmol/L (3.5-5.1)
[2022-07-18 10:56] LABS: ALBUMIN 2.1 g/dL (3.4-5.0); BILIRUBIN,TOTAL 0.3 mg/dL (0.2-1.0); TOTAL PROTEIN, SERUM 5.6 g/dL (6.4-8.2)
[2022-07-18 12:00] VITALS: BP 115/58
[2022-07-18] MEDS ORDERED: POTASSIUM CHLORIDE 20 MEQ POWDER PACKET PO ONE (13:00)
[2022-07-18] MEDS: THERAHONEY GEL 1.5 OZ TUBE TP SCH (13:52)
[2022-07-18 14:29] LABS: ALBUMIN 1.9 g/dL (3.4-5.0); BILIRUBIN,TOTAL 0.3 mg/dL (0.2-1.0); CALCIUM, SERUM 8.6 mg/dL (8.5-10.1); CREATININE 0.6 mg/dL (0.6-1.3); POTASSIUM 3.3 mmol/L (3.5-5.1); TOTAL PROTEIN, SERUM 5.2 g/dL (6.4-8.2)
[2022-07-18] MEDS: CEFTRIAXONE 1 G in IV D5W 50 ML IV SCH (15:02)
[2022-07-18] MEDS: IV D5W 1,000 ML IV PRN (15:17)
--- NOTE | 2022-07-18 18:30 | NUR ---
RECRUITER COORDINATOR OPENING NOTES Received patient in bed awake and alert. A/O x 1-2. Patient on O2 @2L, nasal cannula. Has midline @ SAMSON #18G with IV D5W 1000 ml running 100 ml/hr, infusing well. Edouard catheter in place. Safety measures maintained with bed in lowest position and locked. Side rails up x2. Call light within reach. Will continue with the plan of care.
[2022-07-18 18:39] LABS: CREATININE 0.6 mg/dL (0.6-1.3); POTASSIUM 3.9 mmol/L (3.5-5.1)
[2022-07-18 18:45] LABS: ALBUMIN 2.2 g/dL (3.4-5.0); BILIRUBIN,TOTAL 0.3 mg/dL (0.2-1.0); TOTAL PROTEIN, SERUM 5.8 g/dL (6.4-8.2)
--- NOTE | 2022-07-18 19:31 | NUR ---
FUNERAL ASSISTANT CLOSING NOTES Patient is in bed sleeping comfortably. Can easily be awaken by touch and calling name. A/O x 1-, icelandic speaking. Patient on O2 @2-3L, nasal cannula, no signs of sob or shortness of breath. On tele monitor, currently Afib, with hr 64bpm. Pt vocalized shes not having any chest discomfort at this time. Edouard catheter in place. Safety measures maintained with bed in lowest position and locked. Side rails up x2. Call light within reach. Will endorse jerome to retail shift supervisor nurse.
[2022-07-18 20:00] VITALS: BP 124/52
[2022-07-18 23:02] LABS: CALCIUM, SERUM 8.6 mg/dL (8.5-10.1); CREATININE 0.6 mg/dL (0.6-1.3); POTASSIUM 4.1 mmol/L (3.5-5.1)
[2022-07-18 23:12] LABS: ALBUMIN 1.9 g/dL (3.4-5.0); BILIRUBIN,TOTAL 0.2 mg/dL (0.2-1.0); TOTAL PROTEIN, SERUM 5.2 g/dL (6.4-8.2)
[2022-07-19] VITALS: BP 133/90
--- NOTE | 2022-07-19 01:40 | NUR ---
RN NOTES Water and Ensure given. Went back to sleep. Will continue to monitor patient.
--- NOTE | 2022-07-19 02:20 | NUR ---
RN NOTES Wound care done. Saline wash. Applied therahoney and applied Mepilex and Optifoam dressing on the sacral area. LBM x 1. Edouard catheter drained, 800 ml. Kept clean and dry. Will continue to monitor patient.
[2022-07-19 02:44] LABS: CALCIUM, SERUM 8.7 mg/dL (8.5-10.1); CREATININE 0.6 mg/dL (0.6-1.3); POTASSIUM 3.5 mmol/L (3.5-5.1)
[2022-07-19 02:50] LABS: BILIRUBIN,TOTAL 0.3 mg/dL (0.2-1.0); TOTAL PROTEIN, SERUM 5.5 g/dL (6.4-8.2)
[2022-07-19] MEDS: IV D5W 1,000 ML IV PRN (04:55)
--- NOTE | 2022-07-19 06:30 | NUR ---
TAX ANALYST CLOSING NOTES Patient in sleeping comfortably in bed. Can be easily awaken by touch or calling name. A/O x 1-2. Patient on O2 @2L, nasal cannula. Has midline @ SAMSON #18G with IV D5W 1000 ml running 100 ml/hr, infusing well. On tele monitor, afib @ 71bpm. Edouard catheter in place. Kept clean and dry. Wound care and dressing change done. Safety measures maintained with bed in lowest position and locked. Side rails up x2. Call light within reach. Will endorse to the next shift for the continuity of care.
--- NOTE | 2022-07-19 07:30 | NUR ---
RN Receiving Note Patient AOx2 able to express her own concerns. Patient states no issues, no signs of distress or discomfort. Will continue to monitor throughout shift and provide care as needed. All safety precautions taken, call light and table within reach.
[2022-07-19 07:46] LABS: CALCIUM, SERUM 7.5 mg/dL (8.5-10.1); CARBON DIOXIDE 17 mmol/L (21-32); CHLORIDE 114 mmol/L (98-107); CREATININE 0.4 mg/dL (0.6-1.3); GLUCOSE 191 mg/dL (74-106); POTASSIUM 4.6 mmol/L (3.5-5.1); SODIUM SERUM 138 mmol/L (136-145); UREA NITROGEN, BLOOD 9 mg/dL (7-18)
[2022-07-19 07:51] LABS: ALANINE AMINOTRANSFERASE 32 U/L (12-78); ALKALINE PHOSPHATASE 74 U/L (46-116); ASPARTATE AMINOTRANSFERASE 38 U/L (15-37); BILIRUBIN,TOTAL 0.4 mg/dL (0.2-1.0); TOTAL PROTEIN, SERUM 4.7 g/dL (6.4-8.2)
[2022-07-19 08:00] VITALS: BP 148/54
[2022-07-19 08:01] LABS: ALBUMIN 1.2 g/dL (3.4-5.0)
[2022-07-19] MEDS: ENSURE ENLIVE 237 ML LIQUID (VANILLA) PO SCH ×3 (08:35→16:02)
[2022-07-19] MEDS: ENOXAPARIN SODIUM 40 MG/0.4 ML DISP.SYRIN SQ SCH (08:36)
[2022-07-19] MEDS: THERAHONEY GEL 1.5 OZ TUBE TP SCH (08:41)
[2022-07-19 12:00] VITALS: BP 131/56
[2022-07-19 12:30] LABS: CALCIUM, SERUM 8.8 mg/dL (8.5-10.1); CREATININE 0.6 mg/dL (0.6-1.3); POTASSIUM 4.3 mmol/L (3.5-5.1)
[2022-07-19 12:38] LABS: ALBUMIN 2.1 g/dL (3.4-5.0); BILIRUBIN,TOTAL 0.3 mg/dL (0.2-1.0); TOTAL PROTEIN, SERUM 5.9 g/dL (6.4-8.2)
[2022-07-19] MEDS ORDERED: MEROPENEM 500 MG in IV NS 0.9% 50 ML IV SCH (13:00)
[2022-07-19 14:34] LABS: ALBUMIN 2.3 g/dL (3.4-5.0); BILIRUBIN,TOTAL 0.4 mg/dL (0.2-1.0); CALCIUM, SERUM 8.8 mg/dL (8.5-10.1); CREATININE 0.7 mg/dL (0.6-1.3); POTASSIUM 3.5 mmol/L (3.5-5.1); TOTAL PROTEIN, SERUM 6.3 g/dL (6.4-8.2)
[2022-07-19 16:00] VITALS: BP 111/59
[2022-07-19] MEDS ORDERED: SULF1TAB48 PO (17:35)
--- NOTE | 2022-07-19 18:14 | NUR ---
RN Closing Note Patient AOx3, able to express her own concerns. Nephew at bedside helping with care. Per MD patient meets discharge criteria, daughter Marely made aware and agrees with discharge arrangements. Per [facility] ETA arranged for ETA 1830. All safety precautions taken call light and within reach, bed at lowest position. Pending pick up man.
--- NOTE | 2022-07-19 18:52 | NUR ---
outreach representative Note [facility] transportation Run #[id number], provided report to Chika. Spoke to daughter over the phone and provided new medication information. All safety precautions taken, pt discharge out of unit safely.
== END 2022-07-19 18:55 | disposition home health service (06) | DRG 640 ==
LOC: TELE 21:28
PROVIDERS: ADMIT Internal Medicine; ATTEND Nurse Practitioner Acute Care
PROC: 05HC33Z Insertion of Infusion Device into Left Basilic Vein, Percutaneous Approach (ICD-10-PCS; principal; 2022-07-18)
DX: E87.0 Hyperosmolality and hypernatremia (principal); G93.41 Metabolic encephalopathy; N39.0 Urinary tract infection, site not specified; E44.0 Moderate protein-calorie malnutrition; D68.59 Other primary thrombophilia; F03.90 Unspecified dementia, unspecified severity, without behavioral disturbance, psychotic disturbance, mood disturbance, and anxiety; I48.91 Unspecified atrial fibrillation; E88.09 Other disorders of plasma-protein metabolism, not elsewhere classified; Z79.899 Other long term (current) drug therapy; D63.8 Anemia in other chronic diseases classified elsewhere; L89.156 Pressure-induced deep tissue damage of sacral region; I51.7 Cardiomegaly; K44.9 Diaphragmatic hernia without obstruction or gangrene; R79.89 Other specified abnormal findings of blood chemistry; L89.621 Pressure ulcer of left heel, stage 1; Z74.09 Other reduced mobility
CPT/HCPCS: 36410; 36415; 71045-TC; 80053-TC; 81001; 82248-TC; 83605-TC; 83735-TC; 84100-TC; 85025-TC; 87081-TC; 87086-TC; A6403; G0378; J0696; J1650; J2185; J3480; J3490; J7040; J7042; J7060; J7070